=== PATIENT | female | born 1965 | race Caucasian/White ===

== ENCOUNTER 2017-09-18 11:08 | Emergency (ER) | payer OTHER ==
[2017-09-18] MEDS: KETOROLAC 30 MG INJ IM (13:02)
== END 2017-09-18 13:44 | disposition home or self-care (01) ==
LOC: FTE 11:08
DX: H66.92 Otitis media, unspecified, left ear (principal); G44.009 Cluster headache syndrome, unspecified, not intractable
CPT/HCPCS: 96372; 99284-25

== ENCOUNTER 2018-02-24 09:16 | Day surgery (SDC) | payer OTHER ==
[2018-02-24] MEDS ORDERED: FENTAnyl 50 MCG/ML VIAL (10:58)
[2018-02-24] MEDS ORDERED: MIDAZOLAM 1 MG/ML 2 ML INJ ×3 (10:58)
== END 2018-02-24 11:26 | disposition home or self-care (01) ==
LOC: GIL 09:16
DX: Z12.11 Encounter for screening for malignant neoplasm of colon (principal); K64.8 Other hemorrhoids
CPT/HCPCS: 45378; 84703